=== PATIENT | female | born 1970 | race Caucasian/White ===

== ENCOUNTER 2016-11-07 09:41 | Emergency (ER) | payer MEDICARE | END 2016-11-07 12:40 | disposition home or self-care (01) | LOC: ER 09:41 | DX: R56.9 Unspecified convulsions (principal); Z91.040 Latex allergy status; F17.210 Nicotine dependence, cigarettes, uncomplicated; F12.10 Cannabis abuse, uncomplicated; Z79.899 Other long term (current) drug therapy | CPT/HCPCS: 36415; 70450; 71010; 80053; 80307; 81003; 82550; 82947; 83735; 84484; 85025; 85610; 85730; 93005 ==